=== PATIENT | female | born 2000 | race Hispanic/Latino ===

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

== ENCOUNTER 2023-07-02 01:48 | Day surgery (SDC) | payer MEDICAID ==
[2023-07-02 02:11] VITALS: BMI 25.9
== END 2023-07-02 05:26 | disposition home or self-care (01) ==
LOC: CSHLD/OP 01:48
PROVIDERS: ATTEND Family Medicine
DX: O47.1 False labor at or after 37 completed weeks of gestation (principal); Z79.899 Other long term (current) drug therapy; Z3A.37 37 weeks gestation of pregnancy
CPT/HCPCS: 99282

== ENCOUNTER 2024-10-24 23:50 | Emergency (ER) | payer SELFPAY | END 2024-10-25 01:25 | disposition home or self-care (01) | LOC: CSHERS 23:50 | DX: F41.9 Anxiety disorder, unspecified (principal); R06.4 Hyperventilation ==